=== PATIENT | female | born 1960 | race Caucasian/White ===

== ENCOUNTER → 2023-07-24 07:30 | Outpatient (REF) | payer BC, SELFPAY | LOC: WDC 07:30 | PROVIDERS: ATTENDING PHYSICIAN Family Medicine | DX: Z12.31 Encounter for screening mammogram for malignant neoplasm of breast (principal) | CPT/HCPCS: 77063; 77067 ==

== ENCOUNTER → 2024-07-26 07:31 | Outpatient (REF) | payer BC, SELFPAY | LOC: WDC 07:31 | PROVIDERS: ATTENDING PHYSICIAN Family Medicine | DX: Z12.31 Encounter for screening mammogram for malignant neoplasm of breast (principal) | CPT/HCPCS: 77063; 77067 ==

== ENCOUNTER → 2025-01-03 08:01 | Outpatient (REF) | payer BC, SELFPAY | LOC: RAD 08:01 | PROVIDERS: ATTENDING PHYSICIAN Family Medicine | DX: M85.89 Other specified disorders of bone density and structure, multiple sites (principal) | CPT/HCPCS: 77080 ==